=== PATIENT | female | born 1995 ===

== ENCOUNTER 2019-10-15 06:27 | Emergency (ER) | payer SELFPAY ==
[~2019-10-15] VITALS: Ht 167.6 cm; Wt 62.3 kg
--- NOTE | 2019-10-15 06:40 | PHYS DOC ---
Past Medical History Past Medical History: No Pertinent History Past Surgical History: No Surgical History Smoking Status: Current Every Day Smoker Alcohol Use: Occasionally Drug Use: Heroin General Adult EDM: Chief Complaint: OVERDOSE HPI: HPI: 24-year-old female presents via EMS with report of being found by family member with decreased responsiveness. EMS was called and noted patient with agonal respirations. Patient was also noted to have pinpoint pupils and has history of heroin abuse. Narcan was provided with interval improvement of mentation and respirations. Patient reports she "relapsed ". Denies . Reports last menstrual period was 2 weeks ago. Reports she was previously 8 months sober prior to this event. Review of Systems: Review of Systems: Constitutional: Denies fever or chills Eyes: Denies redness or eye pain HENT: Denies nasal congestion or sore throat Respiratory: Denies cough or shortness of breath; history of decreased respirations which is now improved Cardiovascular: Denies chest pain or palpitations GI: Denies abdominal pain, nausea, or vomiting : Denies dysuria or hematuria Musculoskeletal: Denies back pain or joint pain Integument: Denies rash or skin lesions Neurologic: Denies headache, focal weakness or sensory changes; history of dec reased mentation which is now improved Complete systems were reviewed and found to be within normal limits, except as documented in this note. Current Medications: Current Medications Medications (Trade) Dose Ordered Sig/Kp Start Time Stop Time Status Last Admin Dose Admin Sodium Chloride 1,000 ml @ 1,000 mls/hr 1X ONCE 10/15/19 06:30 10/15/19 07:29 UNV Physical Exam: PE: Constitutional: Well developed, well nourished, crying, non-toxic appearance HENT: Normocephalic, atraumatic Eyes: PERRL, EOMI, conjunctiva normal, no discharge, no nystagmus Neck: Normal range of motion, supple Lungs & Thorax: No respiratory distress, equal chest rise and fall Abdomen: Soft, no tenderness Skin: Warm, dry, no erythema, no rash Extremities: No tenderness, ROM intact, no edema, right ankle location bracelet. Neurologic: Alert and oriented X 3, normal motor function, normal sensory function, no focal deficits noted Psychologic: Affect anxious, judgment normal EKG: EKG: @0631 Sinus tachycardia at 110bpm, NO ST elevation, QRS 90ms, QT/QTc 314/430ms, RBBB Radiology/Procedures: Radiology/Procedures: [] Course & Med Decision Making: Course & Med Decision Making Pertinent Lab studies reviewed. (See chart for details) Patient presents status post accidental overdose with heroin. Patient received Narcan by EMS prior to arrival with interval improvement of mentation and respirations. Patient crying and anxious. Physical exam otherwise unremarkable. EKG with sinus tachycardia. Labs obtained and posted to chart. UA with signs of infection. Empiric antibiotic given. UDS positive for met hamphetamines and opiates. Hypokalemia addressed. IV fluid hydration given. Patient monitored. Patient stable for discharge with outpatient follow-up with PCP/drug rehab. Rehab resources provided. Discussed findings and plan with patient, who acknowledges understanding and agreement. Jodi Disclaimer: Jodi Disclaimer: This electronic medical record was generated, in whole or in part, using a voice recognition dictation system. Departure Departure Impression: Primary Impression: Accidental heroin overdose Qualified Codes: T40.1X1A - Poisoning by heroin, accidental (unintentional), initial encounter Additional Impressions: Urinary tract infection Qualified Codes: N30.01 - Acute cystitis with hematuria Hypokalemia Disposition: HOME, SELF-CARE Condition: STABLE Patient Instructions: Alcohol and Drug Addiction, Finding Treatment, Heroin Abuse and Withdrawal, Hypokalemia, Potassium Content of Foods, Urinary Tract Infection, [id number] Scripts Cephalexin (KEFLEX) 500 Mg Capsule 500 MG PO TID for 7 Days, #21 CAP Prov: ALESHA BELLA DO 10/15/19 Justicifation of Admission Dx: Justifications for Admission: Justification of Admission Dx: N/A ALESHA BELLA DO Oct 15, 2019 06:40
[2019-10-15] MEDS ORDERED: IV NORMAL SALINE 1000ML BAG 1,000 ML IV ONE (06:45)
[2019-10-15 06:59] LABS: BILIRUBIN,URINE SMALL (NEG); CLARITY,URINE CLOUDY; COLOR,URINE AMBER; NITRITE,URINE POSITIVE (NEG); PROTEIN,URINE 100 mg/dL (NEG-TRACE)
[2019-10-15 07:15] LABS: AMPHETAMINE/METHAMPHETAMINE POS (NEG); BACTERIA,URINE MODERATE /HPF (0-FEW); BARBITURATES NEG (NEG); BENZODIAZEPINES NEG (NEG); CANNABINOIDS NEG (NEG); COCAINE NEG (NEG); HYALINE CASTS, URINE OCCASIONAL /HPF; METHADONE NEG (NEG); OPIATES POS (NEG); PHENCYCLIDINE NEG (NEG); RBC,URINE FIELD OBSCURED /HPF (0-2); SQUAMOUS EPITHELIAL CELL,UR MOD /LPF; WBC,URINE TNTC /HPF (0-4)
[2019-10-15] MEDS ORDERED: ONDANSETRON PF 4 MG/2 ML VIAL. IVP ONE (08:00)
[2019-10-15 08:30] LABS: BASO % 0 % (0-3); EOS # 0.1 x10^3/uL (0.0-0.7); EOS % 1 % (0-3); HEMATOCRIT 41.3 % (36.0-47.0); HEMOGLOBIN 13.8 g/dL (12.0-15.5); LYMPH # 1.3 x10^3/uL (1.0-4.8); LYMPH % 12 % (24-48); MEAN CORPUSCULAR HEMOGLOBIN 31 pg (25-35); MEAN CORPUSCULAR HGB CONC 34 g/dL (31-37); MEAN CORPUSCULAR VOLUME 93 fL (79-100); MONO # 0.9 x10^3/uL (0.0-1.1); MONO % 9 % (0-9); NEUT # 8.4 x10^3/uL (1.8-7.7); NEUT % 78 % (31-73); PLATELET COUNT 240 x10^3/uL (140-400); RED BLOOD COUNT 4.46 x10^6/uL (3.50-5.40); RED CELL DISTRIBUTION WIDTH 13.4 % (11.5-14.5); WHITE BLOOD COUNT 10.7 x10^3/uL (4.0-11.0)
[2019-10-15] MEDS ORDERED: cefTRIAXone IV Push 1 GM VIAL. IVP ONE (08:30)
[2019-10-15 08:37] LABS: CALCIUM 8.4 mg/dL (8.5-10.1); CREATININE 0.7 mg/dL (0.6-1.0); POTASSIUM 3.2 mmol/L (3.5-5.1)
--- NOTE | 2019-10-15 08:40 | EKG ---
[facility] [address] [place] [address] Test Date: 2019-10-15 Test Time: 06:31:35 Pat Name: DARIA MARINELLI Department: Room: Gender: F [employer] Developer: : [id number] Requested By: ALESHA BELLA Order Number: [id number] Reading MD: Measurements Intervals [place] Rate: 110 P: 66 NE: 138 QRS: 84 QRSD: 90 T: 17 QT: 314 QTc: 430 Interpretive Statements SINUS TACHYCARDIA INCOMPLETE RIGHT BUNDLE BRANCH BLOCK ST & T ABNORMALITY, CONSIDER ANTERIOR ISCHEMIA OR LEFT VENTRICULAR STRAIN INFERIOR ISCHEMIA OR LEFT VENTRICULAR STRAIN ABNORMAL ECG RI6.02 No previous ECG available for comparison
[2019-10-15 08:43] LABS: ALBUMIN 4.1 g/dL (3.4-5.0); ALBUMIN/GLOBULIN RATIO 1.1 (1.0-1.7); MAGNESIUM 2.1 mg/dL (1.8-2.4); TOTAL BILIRUBIN 0.4 mg/dL (0.2-1.0); TOTAL PROTEIN 7.9 g/dL (6.4-8.2)
[2019-10-15 08:44] LABS: ACETAMIN < 2 mcg/ml (10-30); ETHANOL < 10 mg/dL (0-10); SALIC 4.7 mg/dL (2.8-20.0)
[2019-10-15] MEDS ORDERED: POTASSIUM CHLORIDE 20 MEQ TABLET.ER. PO ONE (08:45)
[2019-10-15 08:49] LABS: PROTHROMBIN TIME PATIENT 13.7 SEC (11.7-14.0)
[2019-10-15] MEDS ORDERED: CEPH-264 PO (09:10)
[2019-10-15 09:15] VITALS: BP 128/77
== END 2019-10-15 09:25 | disposition home or self-care (01) ==
LOC: ER 06:27 → EEVIPCON 06:27 → ER 09:25
DX: T40.1X1A Poisoning by heroin, accidental (unintentional), initial encounter (principal); N30.01 Acute cystitis with hematuria; E87.6 Hypokalemia; Y92.89 Other specified places as the place of occurrence of the external cause
CPT/HCPCS: 36415; 80053; 80307; 80329; 81001; 81025; 83735; 85025; 85610; 85730; 87086; 93005; 96374; 96375; 99285; G0480; J0696; J2405; J7030; 87077; 87186